=== PATIENT | male | born 1990 | race Caucasian/White ===

== ENCOUNTER 2017-03-05 21:27 | Emergency (ER) | payer OTHER ==
[~2017-03-05] VITALS: Ht 175.3 cm; Wt 98.3 kg
[2017-03-05 23:49] LABS: INFLUENZA A VIRAL ANTIGEN NEGATIVE; INFLUENZA B VIRAL ANTIGEN NEGATIVE
[2017-03-05] MEDS ORDERED: VENTOLIN HFA18 GM IH (23:55)
[2017-03-05] MEDS ORDERED: MEDROL DOSEPAK4 MG PO (23:55)
[2017-03-05] MEDS ORDERED: ROBITUSSIN AC,T10 ML PO (23:55)
[2017-03-05 23:59] VITALS: BP 117/74
== END 2017-03-06 00:02 | disposition home or self-care (01) ==
LOC: EXP 21:27 → EME 21:27 → EXP 03-06 00:02
PROVIDERS: Physician Assistant
DX: J06.9 Acute upper respiratory infection, unspecified (principal); J98.01 Acute bronchospasm; I45.10 Unspecified right bundle-branch block; F17.200 Nicotine dependence, unspecified, uncomplicated
CPT/HCPCS: 87502; 87651 90; 93005; 94640; 99281; 99283